=== PATIENT | female | born 1965 | race Caucasian/White ===

== ENCOUNTER 2017-01-25 16:28 | Emergency (ER) | payer BC ==
--- NOTE | 2017-01-25 18:07 | DIAGNOSTIC IMAGING REPORT ---
PROCEDURE: XR WRIST MIN 3 VIEWS - RIGHT INDICATION: TRAUMA/INJURY TECHNIQUE: Three views. COMPARISON: None. FINDINGS: There is a comminuted fracture of the right distal radial metaphysis with one fourth bone width of dorsal and radial displacement, moderate dorsal impaction, and volar apical angulation. There is a minimally impacted fracture the right distal ulnar metaphysis. IMPRESSION: 1. Comminuted and impacted/angulated fracture of the right distal radial metaphysis. 2. Minimally impacted fracture the right ulnar metaphysis.
--- NOTE | 2017-01-25 18:10 | ED ORDER SUMMARY ---
..... Patient: BRITTNEY VICENTE OrderSheet [facility] VisitID: [id number] [address] [place] [address] 51y, F Registration Date/Time: 01/25/2017 ORDER SHEET Weight: 54.4 kg (stated) Allergies: None GENERAL ORDERS: Wrist 3 or 4V Right Urgent (16:53 01/25/2017 HBivens A.R.N.P.) (Ack 16:56 AMcQuoid ER Tech1) (17:22 Vanessa) Splint (UE) (Right) (Sugar Tong) (17:33 01/25/2017 HBivens A.R.N.P.) (18:01 MARIEnehosea R.N.) Sling - arm (17:33 01/25/2017 HBivens A.R.N.P.) (18:01 Abhinav R.N.) MEDICATION ORDERS: IV FLUIDS: ORDER SHEET NOTES: [Electronically signed by Richelle Jackson.R.N.P. (22:55 01/25/2017)] [Electronically signed by Spring Dorman R.N. (11:53 01/26/2017)] [Electronically locked/signed by Spring Dorman R.N. (11:53 01/26/2017)]
--- NOTE | 2017-01-25 18:10 | ED NURSING NOTES ---
Clinical Report - Nurses [facility] [address] [place] [address] 01/25/2017 16:30 Patient: BRITTNEY VICENTE TRIAGE Triage time 16:38 Jan 25 2017. Acuity: LEVEL 4. Chief Complaint: RIGHT UPPER EXTREMITY PAIN and SWELLING. Alert. No acute distress. ANABELL COMA SCORE: [place] Coma Scale: 15- eyes open spontaneously (4); best verbal response- oriented x 4 (5); best motor response- obeys commands (6). --16:43 Spring Dorman R.N. 16:38 01/25/17. BP: 152/87. HR: 70. RR: 16. O2 saturation: 100%. Temp: 98.1 F. Pain level now: 11/17. --16:43 Spring Dorman R.N. Weight: 54.4 kg stated. Height/Length: 62 inches Per Patient. BMI: 22. --16:41 Spring Dorman R.N. Medications None. --16:39 Sprnig Dorman R.N. Allergies None. --16:39 Spring Dorman R.N. History Arrived by private vehicle. Historian: patient. Accompanied by family. Injury occurred. This occurred just prior to arrival. It is described as radiating to the right upper extremity and forearm. ( pt stats that she was knocked down by a couple of dogs and she landed on her wrist.). Treatment AMPOULE EXAMINER: Ice. PAST MEDICAL HX: Tetanus status: more than 5 years ago. Immunizations: status is unknown. SOCIAL HX: Current every day light tobacco smoker (cigarette)- less than 1/2 a pack per day. Regular alcohol use; consumes beer daily. No drug use. No infectious disease exposure. SELF HARM ASSESSMENT: A self harm assessment was performed. The patient answered "no" to the question "Do you have thoughts of harming or killing yourself?". FALL RISK ASSESSMENT: Fall risk assessment completed. No fall risk identified. NUTRITIONAL RISK ASSESSMENT: The nutritional risk assessment revealed no deficiencies. FUNCTIONAL ASSESSMENT: Functional assessment: no impairments noted. LEARNING NEEDS ASSESSMENT: The learning needs assessment revealed no barriers. ABUSE ASSESSMENT: Abuse assessment: The patient was asked "Do you feel safe in your home?". SKIN INTEGRITY ASSESSMENT: Skin integrity risk assessment completed. No skin integrity risk identified. --16:43 Spring Dorman R.N. PROBLEMS: None. --16:40 Spring Dorman R.N. ADDITIONAL SURGERIES: None. --16:40 Spring Dorman R.N. Interventions ID band on patient. To room. --16:43 Spring Dorman R.N. PHYSICAL ASSESSMENT Ambulatory to room. GENERAL / NEURO / PSYCH: Oriented X 4. Alert. Appears in no acute distress. CVS: Capillary refill is greater than 2 seconds. EXTREMITIES: Limited ROM present. Neuro-vascular status intact to the extremity. Right wrist: tenderness, swelling and deformity. SKIN: Skin is warm and dry. --16:44 Spring Dorman R.N. NURSING PROGRESS NOTES Cold pack applied. Extremity elevated. Call light placed in reach. Bed placed in lowest position. Brakes of bed on. --16:44 Spring Dorman R.N. DISPOSITION / DISCHARGE Departure time: 18:48 Jan 25 2017. Condition at departure: improved. No learning barriers present. Discharge instructions provided and reviewed with the patient. Reviewed medication(s) side effects, precautions, dosing and course information. Prescription(s) given to the patient. Reviewed referral to an orthopedic surgeon for followup. Patient verbalized understanding. Written instructions provided in Lao. The patient was discharged home and accompanied by spouse. She left the Emergency Department ambulatory and via private vehicle. Spouse driving. FALL RISK ASSESSMENT: Fall risk assessment completed. No fall risk identified. --18:49 Spring Dorman R.N. 18:48 01/25/17. BP: 127/85. HR: 85. RR: 16. O2 saturation: 99%. Pain level now: 11/17. --18:49 Spring Dorman R.N. Locked/Released at 01/26/2017 11:53 by Spring Dorman R.N.
--- NOTE | 2017-01-25 18:10 | ED ORDER SUMMARY ---
..... Patient: BRITTNEY VICENTE OrderSheet [facility] VisitID: [id number] [address] [place] [address] 51y, F Registration Date/Time: 01/25/2017 ORDER SHEET Weight: 54.4 kg (stated) Allergies: None GENERAL ORDERS: Wrist 3 or 4V Right Urgent (16:53 01/25/2017 HBivens A.R.N.P.) (Ack 16:56 AMcQuoid ER Tech1) (17:22 Vanessa) Splint (UE) (Right) (Sugar Tong) (17:33 01/25/2017 HBivens A.R.N.P.) (18:01 MARIEnehosea R.N.) Sling - arm (17:33 01/25/2017 HBivens A.R.N.P.) (18:01 Abhinav R.N.) MEDICATION ORDERS: IV FLUIDS: ORDER SHEET NOTES: [Electronically signed by Richelle Jackson.R.N.P. (22:55 01/25/2017)] [Electronically signed by Spring Dorman R.N. (11:53 01/26/2017)] [Electronically locked/signed by Spring Dorman R.N. (11:53 01/26/2017)]
--- NOTE | 2017-01-25 18:10 | ED CLINICAL REPORT ---
Clinical Report - Physicians/Mid Levels [facility] [address] [place] [address] 01/25/2017 16:30 Patient: BRITTNEY VICENTE Time Seen: 1640; initial patient contact, initial documentation, patient care assumed. Arrived- By private vehicle. Historian- patient. HISTORY OF PRESENT ILLNESS Chief Complaint: Injury to the right wrist. The injury happened just prior to arrival. Occurred at home. Fell while walking; was pushed (knocked down by her dog). Patient is experiencing mild pain. Patient denies injury to the head or neck. No other injury. REVIEW OF SYSTEMS The patient has had swelling. No tingling, numbness, weakness, foreign body or skin laceration. All systems otherwise negative, except as recorded above. PAST HISTORY Negative. The patient's dominant hand is the right. SOCIAL HISTORY Light tobacco smoker. Regular alcohol use; consumes beer daily. No drug use. No recent travel. Is a local resident. FAMILY HISTORY No significant family medical history. ADDITIONAL NOTES The nursing notes have been reviewed with agreement regarding the chief complaint, HPI, ROS, PMH and patient medications and allergies. PHYSICAL EXAM Vital Signs: 01/25/2017 16:38 BP: 152/87. HR: 70. RR: 16. O2 saturation: 100%. Temp: 98.1 F. Pain level now: 4/10. Have been reviewed as normal and appear to be correct. Appearance: Alert. Oriented X3. No acute distress. Head: Head atraumatic. Eyes: Pupils equal, round and reactive to light. Eyes normal inspection. Respiratory: No respiratory distress. Skin: Skin warm and dry. Skin intact. Extremities: Wrist injury present. Right wrist: mild tenderness and moderate swelling. Limited ROM secondary to pain (diminished flexion and extension, ulnar deviation and radial deviation). Neurovascular intact distally. (entire wrist swollen and tender). No erythema, laceration, abrasion, puncture wound or foreign body. No ecchymosis or deformity. No localization or joint effusion. No hand injury. Hand and wrist exam otherwise negative. Extremities otherwise negative. Neuro, Vascular and Tendons: Vascular status intact. Sensation intact. Motor intact. Tendon function intact. Neuro: Oriented X 3. No motor deficit. No sensory deficit. Note: isolated injury to wrist. LABS, X-RAYS, AND EKG X-Rays: Right wrist. Rt Wrist X-ray: Right wrist fracture. Minimally angulated comminuted fracture of the distal radius. (radius impacted, ulna transverse fx). No angulated, displaced or incomplete fracture of the right distal ulna. (IMPRESSION: 1. Comminuted and impacted/angulated fracture of the right distal radial metaphysis. 2. Minimally impacted fracture the right ulnar metaphysis. Electronically Final signed by:Peter Nation MD 01/25/2017 6:02:28 PM). The X-rays were interpreted by the radiologist and contemporaneously by me. PROGRESS AND PROCEDURES Splint Application: Fiberglass sugar tong splint applied to right upper extremity. Splint applied by tech. Reassessed extremity following splint application. Neurovascular intact. Follow-up recommended within 3 days. Course of Care: 1730. xrays shown to pt, discussed tx options, pt declined offer for pain pill. Patient counseled in person regarding the patient's stable condition, test results and diagnosis. Differential Diagnosis: Other possible considerations: wrist fx, dislocation, sprain. Above considerations are based on history, physical exam, reassessment and X-Ray data. Differential diagnosis was discussed with patient. Disposition: Discharged home in good and improved condition (18:10). Condition: good and stable. CLINICAL IMPRESSION Closed nondisplaced and mildly angulated comminuted fracture of the distal right radius Closed nondisplaced transverse fracture of the distal right ulna. No angulated fracture of the ulna. INSTRUCTIONS Apply ice for 20 minutes four times a day for two days until better. Don't apply ice directly to skin. Elevate affected areas above chest level for two days until better. Wear simple sling until better. Wear fiberglass splint until released. Warnings: GENERAL WARNINGS: Return or contact your physician immediately if your condition worsens or changes unexpectedly, if not improving as expected, or if other problems arise. Specifically return if problem worsens. Prescription Medications: Zofran 4 mg: Take 1 orally every six hours as needed for nausea/vomiting. Dispense ten (10). No refills. Substitution is permissible. [place] 5 mg / 325 mg tablets: take 1 to 2 orally every 6 hours as needed for pain. Dispense fifteen (15). No refills. Substitution is permissible. Motrin 800 mg tablets: take 1 tablet orally every 8 hours as needed for pain. Dispense thirty (30). No refills. Substitution is permissible. Understanding of the discharge instructions verbalized by patient. Follow-up with: [facility], , [address], , [place], [address]; Naresh Lord M.D., [facility], , [address], , [place], [address]; Adolfo Catherine M.D., [facility], , [address], , [place], [address]; Santana Becerra MD, Orthopedic Surgeon, , [address] [place] [address] [address], , [place], [address]; Ted Perkins MD, Orthopedic Surgeon, , [address] , [place], [address] Follow up in about three days even if well. Call for an appointment. Summary of care provided to patient. (Electronically signed by Richelle Jcakson A.R.N.P. 01/25/2017 22:55)
--- NOTE | 2017-01-25 18:10 | ED CLINICAL REPORT ---
Clinical Report - Physicians/Mid Levels [facility] [address] [place] [address] 01/25/2017 16:30 Patient: BRITTNEY VICENTE Time Seen: 1640; initial patient contact, initial documentation, patient care assumed. Arrived- By private vehicle. Historian- patient. HISTORY OF PRESENT ILLNESS Chief Complaint: Injury to the right wrist. The injury happened just prior to arrival. Occurred at home. Fell while walking; was pushed (knocked down by her dog). Patient is experiencing mild pain. Patient denies injury to the head or neck. No other injury. REVIEW OF SYSTEMS The patient has had swelling. No tingling, numbness, weakness, foreign body or skin laceration. All systems otherwise negative, except as recorded above. PAST HISTORY Negative. The patient's dominant hand is the right. SOCIAL HISTORY Light tobacco smoker. Regular alcohol use; consumes beer daily. No drug use. No recent travel. Is a local resident. FAMILY HISTORY No significant family medical history. ADDITIONAL NOTES The nursing notes have been reviewed with agreement regarding the chief complaint, HPI, ROS, PMH and patient medications and allergies. PHYSICAL EXAM Vital Signs: 01/25/2017 16:38 BP: 152/87. HR: 70. RR: 16. O2 saturation: 100%. Temp: 98.1 F. Pain level now: 4/10. Have been reviewed as normal and appear to be correct. Appearance: Alert. Oriented X3. No acute distress. Head: Head atraumatic. Eyes: Pupils equal, round and reactive to light. Eyes normal inspection. Respiratory: No respiratory distress. Skin: Skin warm and dry. Skin intact. Extremities: Wrist injury present. Right wrist: mild tenderness and moderate swelling. Limited ROM secondary to pain (diminished flexion and extension, ulnar deviation and radial deviation). Neurovascular intact distally. (entire wrist swollen and tender). No erythema, laceration, abrasion, puncture wound or foreign body. No ecchymosis or deformity. No localization or joint effusion. No hand injury. Hand and wrist exam otherwise negative. Extremities otherwise negative. Neuro, Vascular and Tendons: Vascular status intact. Sensation intact. Motor intact. Tendon function intact. Neuro: Oriented X 3. No motor deficit. No sensory deficit. Note: isolated injury to wrist. LABS, X-RAYS, AND EKG X-Rays: Right wrist. Rt Wrist X-ray: Right wrist fracture. Minimally angulated comminuted fracture of the distal radius. (radius impacted, ulna transverse fx). No angulated, displaced or incomplete fracture of the right distal ulna. (IMPRESSION: 1. Comminuted and impacted/angulated fracture of the right distal radial metaphysis. 2. Minimally impacted fracture the right ulnar metaphysis. Electronically Final signed by:Peter Nation MD 01/25/2017 6:02:28 PM). The X-rays were interpreted by the radiologist and contemporaneously by me. PROGRESS AND PROCEDURES Splint Application: Fiberglass sugar tong splint applied to right upper extremity. Splint applied by tech. Reassessed extremity following splint application. Neurovascular intact. Follow-up recommended within 3 days. Course of Care: 1730. xrays shown to pt, discussed tx options, pt declined offer for pain pill. Patient counseled in person regarding the patient's stable condition, test results and diagnosis. Differential Diagnosis: Other possible considerations: wrist fx, dislocation, sprain. Above considerations are based on history, physical exam, reassessment and X-Ray data. Differential diagnosis was discussed with patient. Disposition: Discharged home in good and improved condition (18:10). Condition: good and stable. CLINICAL IMPRESSION Closed nondisplaced and mildly angulated comminuted fracture of the distal right radius Closed nondisplaced transverse fracture of the distal right ulna. No angulated fracture of the ulna. INSTRUCTIONS Apply ice for 20 minutes four times a day for two days until better. Don't apply ice directly to skin. Elevate affected areas above chest level for two days until better. Wear simple sling until better. Wear fiberglass splint until released. Warnings: GENERAL WARNINGS: Return or contact your physician immediately if your condition worsens or changes unexpectedly, if not improving as expected, or if other problems arise. Specifically return if problem worsens. Prescription Medications: Zofran 4 mg: Take 1 orally every six hours as needed for nausea/vomiting. Dispense ten (10). No refills. Substitution is permissible. [place] 5 mg / 325 mg tablets: take 1 to 2 orally every 6 hours as needed for pain. Dispense fifteen (15). No refills. Substitution is permissible. Motrin 800 mg tablets: take 1 tablet orally every 8 hours as needed for pain. Dispense thirty (30). No refills. Substitution is permissible. Understanding of the discharge instructions verbalized by patient. Follow-up with: [facility], , [address], , [place], [address]; Naresh Lord M.D., [facility], , [address], , [place], [address]; Adolfo Catherine M.D., [facility], , [address], , [place], [address]; Santana Becerra MD, Orthopedic Surgeon, , [address] [place] [address] [address], , [place], [address]; Ted Perkins MD, Orthopedic Surgeon, , [address] , [place], [address] Follow up in about three days even if well. Call for an appointment. Summary of care provided to patient. (Electronically signed by Richelle Jackson A.R.N.P. 01/25/2017 22:55)
--- NOTE | 2017-01-25 18:10 | ED NURSING NOTES ---
Clinical Report - Nurses [address] [place] [address] 01/25/2017 16:30 Patient: BRITTNEY VICENTE TRIAGE Triage time 16:38 Jan 25 2017. Acuity: LEVEL 4. Chief Complaint: RIGHT UPPER EXTREMITY PAIN and SWELLING. Alert. No acute distress. ANABELL COMA SCORE: [place] Coma Scale: 15- eyes open spontaneously (4); best verbal response- oriented x 4 (5); best motor response- obeys commands (6). --16:43 Spring Dorman R.N. 16:38 01/25/17. BP: 152/87. HR: 70. RR: 16. O2 saturation: 100%. Temp: 98.1 F. Pain level now: 11/17. --16:43 Spring Dorman R.N. Weight: 54.4 kg stated. Height/Length: 62 inches Per Patient. BMI: 22. --16:41 Spring Dorman R.N. Medications None. --16:39 Spring Dorman R.N. Allergies None. --16:39 Spring Dorman R.N. History Arrived by private vehicle. Historian: patient. Accompanied by family. Injury occurred. This occurred just prior to arrival. It is described as radiating to the right upper extremity and forearm. ( pt stats that she was knocked down by a couple of dogs and she landed on her wrist.). Treatment PUBLIC HEALTH STAFF NURSE: Ice. PAST MEDICAL HX: Tetanus status: more than 5 years ago. Immunizations: status is unknown. SOCIAL HX: Current every day light tobacco smoker (cigarette)- less than 1/2 a pack per day. Regular alcohol use; consumes beer daily. No drug use. No infectious disease exposure. SELF HARM ASSESSMENT: A self harm assessment was performed. The patient answered "no" to the question "Do you have thoughts of harming or killing yourself?". FALL RISK ASSESSMENT: Fall risk assessment completed. No fall risk identified. NUTRITIONAL RISK ASSESSMENT: The nutritional risk assessment revealed no deficiencies. FUNCTIONAL ASSESSMENT: Functional assessment: no impairments noted. LEARNING NEEDS ASSESSMENT: The learning needs assessment revealed no barriers. ABUSE ASSESSMENT: Abuse assessment: The patient was asked "Do you feel safe in your home?". SKIN INTEGRITY ASSESSMENT: Skin integrity risk assessment completed. No skin integrity risk identified. --16:43 Spring Dorman R.N. PROBLEMS: None. --16:40 Spring Dorman R.N. ADDITIONAL SURGERIES: None. --16:40 Spring Dorman R.N. Interventions ID band on patient. To room. --16:43 Spring Dorman R.N. PHYSICAL ASSESSMENT Ambulatory to room. GENERAL / NEURO / PSYCH: Oriented X 4. Alert. Appears in no acute distress. CVS: Capillary refill is greater than 2 seconds. EXTREMITIES: Limited ROM present. Neuro-vascular status intact to the extremity. Right wrist: tenderness, swelling and deformity. SKIN: Skin is warm and dry. --16:44 Spring Dorman R.N. NURSING PROGRESS NOTES Cold pack applied. Extremity elevated. Call light placed in reach. Bed placed in lowest position. Brakes of bed on. --16:44 Spring Dorman R.N. DISPOSITION / DISCHARGE Departure time: 18:48 Jan 25 2017. Condition at departure: improved. No learning barriers present. Discharge instructions provided and reviewed with the patient. Reviewed medication(s) side effects, precautions, dosing and course information. Prescription(s) given to the patient. Reviewed referral to an orthopedic surgeon for followup. Patient verbalized understanding. Written instructions provided in Frisian. The patient was discharged home and accompanied by spouse. She left the Emergency Department ambulatory and via private vehicle. Spouse driving. FALL RISK ASSESSMENT: Fall risk assessment completed. No fall risk identified. --18:49 Spring Dorman R.N. 18:48 01/25/17. BP: 127/85. HR: 85. RR: 16. O2 saturation: 99%. Pain level now: 11/17. --18:49 Spring Dorman R.N. Locked/Released at 01/26/2017 11:53 by Spring Dorman R.N.
--- NOTE | 2017-01-26 11:54 | ED MED RECONCILIATION SUMMARY ---
Patient: BRITTNEY VICENTE Medication Reconciliation Report [facility] VisitID: [id number] [address] [place] [address] 51y, F Registration Date/Time: 01/25/2017 Weight: 54.4 kg Height/Length: 62 in. BMI: 22.0 ALLERGIES: None The patient's Home Medications are listed below: NONE. The source(s) of the original Home Medication information: Not obtained. The following Medications were given to the patient in the Emergency Department: None. The following Medications were prescribed to the patient: Zofran 4 mg: Take 1 orally every six hours as needed for nausea/vomiting. Dispense ten (10). No refills. Substitution is permissible. -- Richelle Jackson A.R.N.P. [place] 5 mg / 325 mg tablets: take 1 to 2 orally every 6 hours as needed for pain. Dispense fifteen (15). No refills. Substitution is permissible. -- Richelle Jackson A.R.N.P. Motrin 800 mg tablets: take 1 tablet orally every 8 hours as needed for pain. Dispense thirty (30). No refills. Substitution is permissible. -- Richelle Jackson A.R.N.P.
--- NOTE | 2017-01-26 11:54 | ED MED RECONCILIATION SUMMARY ---
Patient: BRITTNEY VICENTE Medication Reconciliation Report VisitID: [id number] [address] [address] 51y, F Registration Date/Time: 01/25/2017 Weight: 54.4 kg Height/Length: 62 in. BMI: 22.0 ALLERGIES: None The patient's Home Medications are listed below: NONE. The source(s) of the original Home Medication information: Not obtained. The following Medications were given to the patient in the Emergency Department: None. The following Medications were prescribed to the patient: Zofran 4 mg: Take 1 orally every six hours as needed for nausea/vomiting. Dispense ten (10). No refills. Substitution is permissible. -- Richelle Jackson A.R.N.P. [place] 5 mg / 325 mg tablets: take 1 to 2 orally every 6 hours as needed for pain. Dispense fifteen (15). No refills. Substitution is permissible. -- Richelle Jackson A.R.N.P. Motrin 800 mg tablets: take 1 tablet orally every 8 hours as needed for pain. Dispense thirty (30). No refills. Substitution is permissible. -- Richelle Jackson A.R.N.P.
--- NOTE | 2017-01-26 11:54 | ED DISCHARGE INSTRUCTIONS ---
Patient: BRITTNEY VICENTE General Instructions [facility] VisitID: [id number] [address], [place], [place] [id number] 51y, F Registration Date/Time: 01/25/2017 Closed nondisplaced and mildly angulated comminuted fracture of the distal right radius Closed nondisplaced transverse fracture of the distal right ulna. No angulated fracture of the ulna. INSTRUCTIONS Apply ice for 20 minutes four times a day for two days until better. Don't apply ice directly to skin. Elevate affected areas above chest level for two days until better. Wear simple sling until better. Wear fiberglass splint until released. Warnings: GENERAL WARNINGS: Return or contact your physician immediately if your condition worsens or changes unexpectedly, if not improving as expected, or if other problems arise. Specifically return if problem worsens. Prescription Medications: Zofran 4 mg: Take 1 orally every six hours as needed for nausea/vomiting. Dispense ten (10). No refills. Substitution is permissible. Greenbrier 5 mg / 325 mg tablets: take 1 to 2 orally every 6 hours as needed for pain. Dispense fifteen (15). No refills. Substitution is permissible. Motrin 800 mg tablets: take 1 tablet orally every 8 hours as needed for pain. Dispense thirty (30). No refills. Substitution is permissible. Understanding of the discharge instructions verbalized by patient. Follow-up with: [facility] [place], , [address], [facility] [address]; Naresh Lord M.D., Ortho, , [address], , [facility] [address]; Adolfo Catherine M.D., Ortho, , [address], , [place] [id number]; Santana Becerra MD, Orthopedic Surgeon, , [address], , [place], [address]; Ted Perkins MD, Orthopedic Surgeon, , [address] , [place] [id number] Follow up in about three days even if well. Call for an appointment. Summary of care provided to patient. ADDITIONAL INFORMATION Fracture: Wrist (General) You have a fracture (break) of a bone in your wrist. This may be a small crack or chip in the bone; or a major break with the broken parts pushed out of position. Wrist fractures are treated with a splint or cast. They take about 4-6 weeks to heal. Severe injuries may require surgery. Home Care: Keep your arm elevated to reduce pain and swelling. When sitting or lying down elevate your arm above the level of your heart. You can do this by placing your arm on a pillow that rests on your chest or on a pillow at your side. This is most important during the first 48 hours after injury. Apply an ice pack (ice cubes in a plastic bag, wrapped in a towel) over the injured area for 20 minutes every 1-2 hours the first day. You can place the ice pack inside the sling and directly over the splint/cast. Continue with ice packs 3-4 times a day for the next two days, then as needed for the relief of pain and swelling. Keep the cast/splint completely dry at all times. Bathe with your cast/splint out of the water, protected with a large plastic bag, rubber-banded at the top end. If a fiberglass splint/cast gets wet, you can dry it with a hair-dryer. You may use acetaminophen (Tylenol) or ibuprofen (Motrin, Advil) to control pain, unless another pain medicine was prescribed. [NOTE: If you have chronic liver or kidney disease or ever had a stomach ulcer or GI bleeding, talk with your doctor before using these medicines.] Follow Up with your doctor in one week, or as advised by our staff, to be sure the bone is healing properly. If a splint was applied, it will be changed to a cast during your follow-up visit. [NOTE: Any X-rays taken will be reviewed by a radiologist. You will be notified if there are any new findings that may affect your care.] Get Prompt Medical Attention if any of the following occur: The plaster cast or splint becomes wet or soft The fiberglass cast or splint remains wet for more than 24 hours Increased tightness or pain under the cast or splint Fingers become swollen, cold, blue, numb or tingly Fracture: Forearm (Radius/Ulna) (Reduction Needed) You have a break (fracture) of both bones in the forearm (radiusand ulna). The bones are out of place and must be set (reduced) to make them straight again. This fracture usually takes 4-6 weeks to heal. Initial treatment is with a splint or cast. Severe injuries may require surgery to repair. Home Care: Keep your arm elevated to reduce pain and swelling. When sitting or lying down elevate your arm above the level of your heart. You can do this by placing your arm on a pillow that rests on your chest or on a pillow at your side. This is most important during the first 48 hours after injury. Apply an ice pack (ice cubes in a plastic bag, wrapped in a towel) over the injured area for 20 minutes every 1-2 hours the first day. You can place the ice pack inside the sling and directly over the splint/cast. Continue with ice packs 3-4 times a day for the next two days, then as needed for the relief of pain and swelling. Keep the cast/splint completely dry at all times. Bathe with your cast/splint out of the water, protected with a large plastic bag, rubber-banded at the top end. If a fiberglass splint/cast gets wet, you can dry it with a hair-dryer. You may use acetaminophen (Tylenol) or ibuprofen (Motrin, Advil) to control pain, unless another pain medicine was prescribed. [NOTE: If you have chronic liver or kidney disease or ever had a stomach ulcer or GI bleeding, talk with your doctor before using these medicines.] Follow Up with your doctor in one week, or as advised by our staff, to be sure the bone is healing properly. If a splint was applied, it will be changed to a cast during your follow-up visit. There is a chance that the fractures will move out of place again during the first week before the ends begin to seal together. Therefore, it is important that you follow-up as directed for another X-ray. [NOTE: If x-rays were taken, they will be reviewed by a radiologist. You will be notified if there are any new findings that may affect your care.] Get Prompt Medical Attention if any of the following occur: The plaster cast or splint becomes wet or soft The fiberglass cast or splint remains wet for more than 24 hours Increased tightness or pain under the cast or splint Fingers become swollen, cold, blue, numb or tingly Sling A sling is designed to support your arm in a position of rest. It is used for injuries of the hand, forearm, upper arm, and shoulder. A shoulder that is immobilized too long can become stiff and lose range of motion. Follow up with your doctor as advised and do not use the sling longer than directed. Home Use: Leave the sling in place as long as directed by your doctor. Unless told otherwise, you may remove it when bathing, dressing, and when you go to sleep. The sling is adjustable. If it becomes loose, adjust it so that your forearm is horizontal (level with the ground). Your hand should be level with the elbow. Splint Care, Fiberglass The following will help you care for your splint: It will take up totwo hours for your fiber glass splint to fully harden; therefore, do notapply any pressure on it during that time or else it may break. To prevent swelling under the splint, for thefirst 48 hours: If the splint is on yourarm, keep it in a sling or raised to shoulder level when sitting or standing; rest it on your chest or on a pillow at your side when lying down. If the splint is on yourfoot, keep it propped up above the level of your waist when sitting or lying. Avoid crutch walking as much as possible during this time. Keep the splint/cast dry at all times. Bathe with your splint/cast well out of the water, protected with a large plastic bag, rubber-banded at the top end. If a fiberglass cast or splint gets wet, you can dry it with a hair-dryer. Follow-up care Follow up with your doctor or this facility as advised. When to seek medical care Get prompt medical attention if any of the following occur: Bad odor from the splint or wound-fluid stains the splint The splint cracks or remains wet over 24 hours Increasing tightness or pressure under the splint Fingers or toes become swollen, cold, blue, numb or tingly Increased pain under the splint Ondansetron Oral disintegrating tablet What is this medicine? ONDANSETRON (on SOHA se asim) is used to treat nausea and vomiting caused by chemotherapy. It is also used to prevent or treat nausea and vomiting after surgery. How should I use this medicine? These tablets are made to dissolve in the mouth. Do not try to push the tablet through the foil backing. With dry hands, peel away the foil backing and gently remove the tablet. Place the tablet in the mouth and allow it to dissolve, then swallow. While you may take these tablets with water, it is not necessary to do so. Talk to your distribution supervisor regarding the use of this medicine in children. Special care may be needed. What side effects may I notice from receiving this medicine? Side effects that you should report to your doctor or health landcare officer as soon as possible: allergic reactions like skin rash, itching or hives, swelling of the face, lips, or tongue breathing problems dizziness fast or irregular heartbeat feeling faint or lightheaded, falls fever and chills swelling of the hands and feet tightness in the chest Side effects that usually do not require medical attention (report to your doctor or health landcare officer if they continue or are bothersome): constipation or diarrhea headache What may interact with this medicine? Do not take this medicine with any of the following medications: -apomorphine -cisapride -dofetilide -dronedarone -pimozide -thioridazine -ziprasidone This medicine may also interact with the following medications: -carbamazepine -phenytoin -rifampicin -tramadol -other medicines that prolong the QT interval (cause an abnormal heart rhythm) What if I miss a dose? If you miss a dose, take it as soon as you can. If it is almost time for your next dose, take only that dose. Do not take double or extra doses. Where should I keep my medicine? Keep out of the reach of children. Store between 2 and 30 degrees C (36 and 86 degrees F). Throw away any unused medicine after the expiration date. What should I tell my health care provider before I take this medicine? They need to know if you have any of these conditions: heart disease history of irregular heartbeat liver disease low levels of magnesium or potassium in the blood an unusual or allergic reaction to ondansetron, granisetron, other medicines, foods, dyes, or preservatives or trying to get breast-feeding What should I watch for while using this medicine? Check with your doctor or health landcare officer as soon as you can if you have any sign of an allergic reaction. Hydrocodone Bitartrate, Acetaminophen Oral tablet What is this medicine? ACETAMINOPHEN; HYDROCODONE (a set a CHRISSY tom fen; kathryn droe KOE done) is a pain reliever. It is used to treat mild to moderate pain. How should I use this medicine? Take this medicine by mouth. Swallow it with a full glass of water. Follow the directions on the prescription label. If the medicine upsets your stomach, take the medicine with food or milk. Do not take more than you are told to take. Talk to your distribution supervisor regarding the use of this medicine in children. This medicine is not approved for use in children. What side effects may I notice from receiving this medicine? Side effects that you should report to your doctor or health landcare officer as soon as possible: allergic reactions like skin rash, itching or hives, swelling of the face, lips, or tongue breathing problems confusion feeling faint or lightheaded, falls stomach pain yellowing of the eyes or skin Side effects that usually do not require medical attention (report to your doctor or health landcare officer if they continue or are bothersome): nausea, vomiting stomach upset What may interact with this medicine? alcohol antihistamines isoniazid medicines for depression, anxiety, or psychotic disturbances medicines for sleep muscle relaxants naltrexone narcotic medicines (opiates) for pain phenobarbital ritonavir tramadol What if I miss a dose? If you miss a dose, take it as soon as you can. If it is almost time for your next dose, take only that dose. Do not take double or extra doses. Where should I keep my medicine? Keep out of the reach of children. This medicine can be abused. Keep your medicine in a safe place to protect it from theft. Do not share this medicine with anyone. Selling or giving away this medicine is dangerous and against the law. Store at room temperature between 15 and 30 degrees C (59 and 86 degrees F). Protect from light. Keep container tightly closed. Throw away any unused medicine after the expiration date. Discard unused medicine and used packaging carefully. Pets and children can be harmed if they find used or lost packages. What should I tell my health care provider before I take this medicine? They need to know if you have any of these conditions: brain tumor Crohn's disease, inflammatory bowel disease, or ulcerative colitis drink more than 3 alcohol-containing drinks per day drug abuse or addiction head injury heart or circulation problems kidney disease or problems going to the bathroom liver disease lung disease, asthma, or breathing problems an unusual or allergic reaction to acetaminophen, hydrocodone, other opioid analgesics, other medicines, foods, dyes, or preservatives or trying to get breast-feeding What should I watch for while using this medicine? Tell your doctor or health landcare officer if your pain does not go away, if it gets worse, or if you have new or a different type of pain. You may develop tolerance to the medicine. Tolerance means that you will need a higher dose of the medicine for pain relief. Tolerance is normal and is expected if you take the medicine for a long time. Do not suddenly stop taking your medicine because you may develop a severe reaction. Your body becomes used to the medicine. This does NOT mean you are addicted. Addiction is a behavior related to getting and using a drug for a non-medical reason. If you have pain, you have a medical reason to take pain medicine. Your doctor will tell you how much medicine to take. If your doctor wants you to stop the medicine, the dose will be slowly lowered over time to avoid any side effects. You may get drowsy or dizzy when you first start taking the medicine or change doses. Do not drive, use machinery, or do anything that may be dangerous until you know how the medicine affects you. Stand or sit up slowly. There are different types of narcotic medicines (opiates) for pain. If you take more than one type at the same time, you may have more side effects. Give your health care provider a list of all medicines you use. Your doctor will tell you how much medicine to take. Do not take more medicine than directed. Call emergency for help if you have problems breathing. The medicine will cause constipation. Try to have a bowel movement at least every 2 to 3 days. If you do not have a bowel movement for 3 days, call your doctor or health landcare officer. Too much acetaminophen can be very dangerous. Do not take Tylenol (acetaminophen) or medicines that contain acetaminophen with this medicine. Many non-prescription medicines contain acetaminophen. Always read the labels carefully. Ibuprofen Oral tablet What is this medicine? IBUPROFEN (eye BYOO proe fen) is a non-steroidal anti-inflammatory drug (NSAID). It is used for dental pain, fever, headaches or migraines, osteoarthritis, rheumatoid arthritis, or painful monthly periods. It can also relieve minor aches and pains caused by a cold, flu, or sore throat. How should I use this medicine? Take this medicine by mouth with a glass of water. Follow the directions on the prescription label. Take this medicine with food if your stomach gets upset. Try to not lie down for at least 10 minutes after you take the medicine. Take your medicine at regular intervals. Do not take your medicine more often than directed. A special MedGuide will be given to you by the pharmacist with each prescription and refill. Be sure to read this information carefully each time. Talk to your distribution supervisor regarding the use of this medicine in children. Special care may be needed. What side effects may I notice from receiving this medicine? Side effects that you should report to your doctor or health landcare officer as soon as possible: allergic reactions like skin rash, itching or hives, swelling of the face, lips, or tongue black or bloody stools, blood in the urine or in vomit breathing problems changes in vision chest pain general ill feeling or flu-like symptoms nausea or vomiting redness, blistering, peeling or loosening of the skin, including inside the mouth slurred speech or weakness on one side of the body stomach pain unexplained weight gain or swelling unusually weak or tired yellowing of eyes or skin Side effects that usually do not require medical attention (report to your doctor or health landcare officer if they continue or are bothersome): constipation or diarrhea dizziness gas or heartburn stomach upset What may interact with this medicine? Do not take this medicine with any of the following medications: cidofovir ketorolac methotrexate pemetrexed This medicine may also interact with the following medications: alcohol aspirin diuretics lithium other drugs for inflammation like prednisone warfarin What if I miss a dose? If you miss a dose, take it as soon as you can. If it is almost time for your next dose, take only that dose. Do not take double or extra doses. Where should I keep my medicine? Keep out of the reach of children. Store at room temperature between 15 and 30 degrees C (59 and 86 degrees F). Keep container tightly closed. Throw away any unused medicine after the expiration date. What should I tell my health care provider before I take this medicine? They need to know if you have any of these conditions: asthma cigarette smoker drink more than 3 alcohol containing drinks a day heart disease or circulation problems such as heart failure or leg edema (fluid retention) high blood pressure kidney disease liver disease stomach bleeding or ulcers an unusual or allergic reaction to ibuprofen, aspirin, other NSAIDS, other medicines, foods, dyes, or preservatives or trying to get breast-feeding What should I watch for while using this medicine? Tell your doctor or healthcare professional if your symptoms do not start to get better or if they get worse. This medicine does not prevent heart attack or stroke. In fact, this medicine may increase the chance of a heart attack or stroke. The chance may increase with longer use of this medicine and in people who have heart disease. If you take aspirin to prevent heart attack or stroke, talk with your doctor or health landcare officer. Do not take other medicines that contain aspirin, ibuprofen, or naproxen with this medicine. Side effects such as stomach upset, nausea, or ulcers may be more likely to occur. Many medicines available without a prescription should not be taken with this medicine. This medicine can cause ulcers and bleeding in the stomach and intestines at any time during treatment. Ulcers and bleeding can happen without warning symptoms and can cause . To reduce your risk, do not smoke cigarettes or drink alcohol while you are taking this medicine. You may get drowsy or dizzy. Do not drive, use machinery, or do anything that needs mental alertness until you know how this medicine affects you. Do not stand or sit up quickly, especially if you are an older patient. This reduces the risk of dizzy or fainting spells. This medicine can cause you to bleed more easily. Try to avoid damage to your teeth and gums when you brush or floss your teeth. You have been given the following additional information: Fracture, Wrist [General] Radius And Ulna Fx, Reduction Required Sling Splint Care, Fiberglass Ondansetron Oral disintegrating tablet Hydrocodone Bitartrate, Acetaminophen Oral tablet Ibuprofen Oral tablet (Electronically signed by Richelle Jackson A.R.N.P. 01/25/2017 22:55)
--- NOTE | 2017-01-26 11:54 | ED DISCHARGE INSTRUCTIONS ---
Patient: BRITTNEY VICENTE General Instructions [facility] VisitID: [id number] [address], [place], [place] [id number] 51y, F Registration Date/Time: 01/25/2017 Closed nondisplaced and mildly angulated comminuted fracture of the distal right radius Closed nondisplaced transverse fracture of the distal right ulna. No angulated fracture of the ulna. INSTRUCTIONS Apply ice for 20 minutes four times a day for two days until better. Don't apply ice directly to skin. Elevate affected areas above chest level for two days until better. Wear simple sling until better. Wear fiberglass splint until released. Warnings: GENERAL WARNINGS: Return or contact your physician immediately if your condition worsens or changes unexpectedly, if not improving as expected, or if other problems arise. Specifically return if problem worsens. Prescription Medications: Zofran 4 mg: Take 1 orally every six hours as needed for nausea/vomiting. Dispense ten (10). No refills. Substitution is permissible. [place] 5 mg / 325 mg tablets: take 1 to 2 orally every 6 hours as needed for pain. Dispense fifteen (15). No refills. Substitution is permissible. Motrin 800 mg tablets: take 1 tablet orally every 8 hours as needed for pain. Dispense thirty (30). No refills. Substitution is permissible. Understanding of the discharge instructions verbalized by patient. Follow-up with: [facility], [place], , [address], [facility] [address]; Naresh Lord M.D., Ortho, , [address], , [facility] [address]; Adolfo Catherine M.D., Ortho, , [address] , [place] [id number]; Santana Becerra MD, Orthopedic Surgeon, , [address], , [place], [address]; Ted Perkins MD, Orthopedic Surgeon, , [address] , [place] [id number] Follow up in about three days even if well. Call for an appointment. Summary of care provided to patient. ADDITIONAL INFORMATION Fracture: Wrist (General) You have a fracture (break) of a bone in your wrist. This may be a small crack or chip in the bone; or a major break with the broken parts pushed out of position. Wrist fractures are treated with a splint or cast. They take about 4-6 weeks to heal. Severe injuries may require surgery. Home Care: Keep your arm elevated to reduce pain and swelling. When sitting or lying down elevate your arm above the level of your heart. You can do this by placing your arm on a pillow that rests on your chest or on a pillow at your side. This is most important during the first 48 hours after injury. Apply an ice pack (ice cubes in a plastic bag, wrapped in a towel) over the injured area for 20 minutes every 1-2 hours the first day. You can place the ice pack inside the sling and directly over the splint/cast. Continue with ice packs 3-4 times a day for the next two days, then as needed for the relief of pain and swelling. Keep the cast/splint completely dry at all times. Bathe with your cast/splint out of the water, protected with a large plastic bag, rubber-banded at the top end. If a fiberglass splint/cast gets wet, you can dry it with a hair-dryer. You may use acetaminophen (Tylenol) or ibuprofen (Motrin, Advil) to control pain, unless another pain medicine was prescribed. [NOTE: If you have chronic liver or kidney disease or ever had a stomach ulcer or GI bleeding, talk with your doctor before using these medicines.] Follow Up with your doctor in one week, or as advised by our staff, to be sure the bone is healing properly. If a splint was applied, it will be changed to a cast during your follow-up visit. [NOTE: Any X-rays taken will be reviewed by a radiologist. You will be notified if there are any new findings that may affect your care.] Get Prompt Medical Attention if any of the following occur: The plaster cast or splint becomes wet or soft The fiberglass cast or splint remains wet for more than 24 hours Increased tightness or pain under the cast or splint Fingers become swollen, cold, blue, numb or tingly Fracture: Forearm (Radius/Ulna) (Reduction Needed) You have a break (fracture) of both bones in the forearm (radiusand ulna). The bones are out of place and must be set (reduced) to make them straight again. This fracture usually takes 4-6 weeks to heal. Initial treatment is with a splint or cast. Severe injuries may require surgery to repair. Home Care: Keep your arm elevated to reduce pain and swelling. When sitting or lying down elevate your arm above the level of your heart. You can do this by placing your arm on a pillow that rests on your chest or on a pillow at your side. This is most important during the first 48 hours after injury. Apply an ice pack (ice cubes in a plastic bag, wrapped in a towel) over the injured area for 20 minutes every 1-2 hours the first day. You can place the ice pack inside the sling and directly over the splint/cast. Continue with ice packs 3-4 times a day for the next two days, then as needed for the relief of pain and swelling. Keep the cast/splint completely dry at all times. Bathe with your cast/splint out of the water, protected with a large plastic bag, rubber-banded at the top end. If a fiberglass splint/cast gets wet, you can dry it with a hair-dryer. You may use acetaminophen (Tylenol) or ibuprofen (Motrin, Advil) to control pain, unless another pain medicine was prescribed. [NOTE: If you have chronic liver or kidney disease or ever had a stomach ulcer or GI bleeding, talk with your doctor before using these medicines.] Follow Up with your doctor in one week, or as advised by our staff, to be sure the bone is healing properly. If a splint was applied, it will be changed to a cast during your follow-up visit. There is a chance that the fractures will move out of place again during the first week before the ends begin to seal together. Therefore, it is important that you follow-up as directed for another X-ray. [NOTE: If x-rays were taken, they will be reviewed by a radiologist. You will be notified if there are any new findings that may affect your care.] Get Prompt Medical Attention if any of the following occur: The plaster cast or splint becomes wet or soft The fiberglass cast or splint remains wet for more than 24 hours Increased tightness or pain under the cast or splint Fingers become swollen, cold, blue, numb or tingly Sling A sling is designed to support your arm in a position of rest. It is used for injuries of the hand, forearm, upper arm, and shoulder. A shoulder that is immobilized too long can become stiff and lose range of motion. Follow up with your doctor as advised and do not use the sling longer than directed. Home Use: Leave the sling in place as long as directed by your doctor. Unless told otherwise, you may remove it when bathing, dressing, and when you go to sleep. The sling is adjustable. If it becomes loose, adjust it so that your forearm is horizontal (level with the ground). Your hand should be level with the elbow. Splint Care, Fiberglass The following will help you care for your splint: It will take up totwo hours for your fiber glass splint to fully harden; therefore, do notapply any pressure on it during that time or else it may break. To prevent swelling under the splint, for thefirst 48 hours: If the splint is on yourarm, keep it in a sling or raised to shoulder level when sitting or standing; rest it on your chest or on a pillow at your side when lying down. If the splint is on yourfoot, keep it propped up above the level of your waist when sitting or lying. Avoid crutch walking as much as possible during this time. Keep the splint/cast dry at all times. Bathe with your splint/cast well out of the water, protected with a large plastic bag, rubber-banded at the top end. If a fiberglass cast or splint gets wet, you can dry it with a hair-dryer. Follow-up care Follow up with your doctor or this facility as advised. When to seek medical care Get prompt medical attention if any of the following occur: Bad odor from the splint or wound-fluid stains the splint The splint cracks or remains wet over 24 hours Increasing tightness or pressure under the splint Fingers or toes become swollen, cold, blue, numb or tingly Increased pain under the splint Ondansetron Oral disintegrating tablet What is this medicine? ONDANSETRON (on SOHA se asim) is used to treat nausea and vomiting caused by chemotherapy. It is also used to prevent or treat nausea and vomiting after surgery. How should I use this medicine? These tablets are made to dissolve in the mouth. Do not try to push the tablet through the foil backing. With dry hands, peel away the foil backing and gently remove the tablet. Place the tablet in the mouth and allow it to dissolve, then swallow. While you may take these tablets with water, it is not necessary to do so. Talk to your conveyor belt operator regarding the use of this medicine in children. Special care may be needed. What side effects may I notice from receiving this medicine? Side effects that you should report to your doctor or health lpn care manager as soon as possible: allergic reactions like skin rash, itching or hives, swelling of the face, lips, or tongue breathing problems dizziness fast or irregular heartbeat feeling faint or lightheaded, falls fever and chills swelling of the hands and feet tightness in the chest Side effects that usually do not require medical attention (report to your doctor or health lpn care manager if they continue or are bothersome): constipation or diarrhea headache What may interact with this medicine? Do not take this medicine with any of the following medications: -apomorphine -cisapride -dofetilide -dronedarone -pimozide -thioridazine -ziprasidone This medicine may also interact with the following medications: -carbamazepine -phenytoin -rifampicin -tramadol -other medicines that prolong the QT interval (cause an abnormal heart rhythm) What if I miss a dose? If you miss a dose, take it as soon as you can. If it is almost time for your next dose, take only that dose. Do not take double or extra doses. Where should I keep my medicine? Keep out of the reach of children. Store between 2 and 30 degrees C (36 and 86 degrees F). Throw away any unused medicine after the expiration date. What should I tell my health care provider before I take this medicine? They need to know if you have any of these conditions: heart disease history of irregular heartbeat liver disease low levels of magnesium or potassium in the blood an unusual or allergic reaction to ondansetron, granisetron, other medicines, foods, dyes, or preservatives or trying to get breast-feeding What should I watch for while using this medicine? Check with your doctor or health lpn care manager as soon as you can if you have any sign of an allergic reaction. Hydrocodone Bitartrate, Acetaminophen Oral tablet What is this medicine? ACETAMINOPHEN; HYDROCODONE (a set a CHRISSY tom fen; kathryn droe KOE done) is a pain reliever. It is used to treat mild to moderate pain. How should I use this medicine? Take this medicine by mouth. Swallow it with a full glass of water. Follow the directions on the prescription label. If the medicine upsets your stomach, take the medicine with food or milk. Do not take more than you are told to take. Talk to your conveyor belt operator regarding the use of this medicine in children. This medicine is not approved for use in children. What side effects may I notice from receiving this medicine? Side effects that you should report to your doctor or health lpn care manager as soon as possible: allergic reactions like skin rash, itching or hives, swelling of the face, lips, or tongue breathing problems confusion feeling faint or lightheaded, falls stomach pain yellowing of the eyes or skin Side effects that usually do not require medical attention (report to your doctor or health lpn care manager if they continue or are bothersome): nausea, vomiting stomach upset What may interact with this medicine? alcohol antihistamines isoniazid medicines for depression, anxiety, or psychotic disturbances medicines for sleep muscle relaxants naltrexone narcotic medicines (opiates) for pain phenobarbital ritonavir tramadol What if I miss a dose? If you miss a dose, take it as soon as you can. If it is almost time for your next dose, take only that dose. Do not take double or extra doses. Where should I keep my medicine? Keep out of the reach of children. This medicine can be abused. Keep your medicine in a safe place to protect it from theft. Do not share this medicine with anyone. Selling or giving away this medicine is dangerous and against the law. Store at room temperature between 15 and 30 degrees C (59 and 86 degrees F). Protect from light. Keep container tightly closed. Throw away any unused medicine after the expiration date. Discard unused medicine and used packaging carefully. Pets and children can be harmed if they find used or lost packages. What should I tell my health care provider before I take this medicine? They need to know if you have any of these conditions: brain tumor Crohn's disease, inflammatory bowel disease, or ulcerative colitis drink more than 3 alcohol-containing drinks per day drug abuse or addiction head injury heart or circulation problems kidney disease or problems going to the bathroom liver disease lung disease, asthma, or breathing problems an unusual or allergic reaction to acetaminophen, hydrocodone, other opioid analgesics, other medicines, foods, dyes, or preservatives or trying to get breast-feeding What should I watch for while using this medicine? Tell your doctor or health lpn care manager if your pain does not go away, if it gets worse, or if you have new or a different type of pain. You may develop tolerance to the medicine. Tolerance means that you will need a higher dose of the medicine for pain relief. Tolerance is normal and is expected if you take the medicine for a long time. Do not suddenly stop taking your medicine because you may develop a severe reaction. Your body becomes used to the medicine. This does NOT mean you are addicted. Addiction is a behavior related to getting and using a drug for a non-medical reason. If you have pain, you have a medical reason to take pain medicine. Your doctor will tell you how much medicine to take. If your doctor wants you to stop the medicine, the dose will be slowly lowered over time to avoid any side effects. You may get drowsy or dizzy when you first start taking the medicine or change doses. Do not drive, use machinery, or do anything that may be dangerous until you know how the medicine affects you. Stand or sit up slowly. There are different types of narcotic medicines (opiates) for pain. If you take more than one type at the same time, you may have more side effects. Give your health care provider a list of all medicines you use. Your doctor will tell you how much medicine to take. Do not take more medicine than directed. Call emergency for help if you have problems breathing. The medicine will cause constipation. Try to have a bowel movement at least every 2 to 3 days. If you do not have a bowel movement for 3 days, call your doctor or health lpn care manager. Too much acetaminophen can be very dangerous. Do not take Tylenol (acetaminophen) or medicines that contain acetaminophen with this medicine. Many non-prescription medicines contain acetaminophen. Always read the labels carefully. Ibuprofen Oral tablet What is this medicine? IBUPROFEN (eye BYOO proe fen) is a non-steroidal anti-inflammatory drug (NSAID). It is used for dental pain, fever, headaches or migraines, osteoarthritis, rheumatoid arthritis, or painful monthly periods. It can also relieve minor aches and pains caused by a cold, flu, or sore throat. How should I use this medicine? Take this medicine by mouth with a glass of water. Follow the directions on the prescription label. Take this medicine with food if your stomach gets upset. Try to not lie down for at least 10 minutes after you take the medicine. Take your medicine at regular intervals. Do not take your medicine more often than directed. A special MedGuide will be given to you by the pharmacist with each prescription and refill. Be sure to read this information carefully each time. Talk to your conveyor belt operator regarding the use of this medicine in children. Special care may be needed. What side effects may I notice from receiving this medicine? Side effects that you should report to your doctor or health lpn care manager as soon as possible: allergic reactions like skin rash, itching or hives, swelling of the face, lips, or tongue black or bloody stools, blood in the urine or in vomit breathing problems changes in vision chest pain general ill feeling or flu-like symptoms nausea or vomiting redness, blistering, peeling or loosening of the skin, including inside the mouth slurred speech or weakness on one side of the body stomach pain unexplained weight gain or swelling unusually weak or tired yellowing of eyes or skin Side effects that usually do not require medical attention (report to your doctor or health lpn care manager if they continue or are bothersome): constipation or diarrhea dizziness gas or heartburn stomach upset What may interact with this medicine? Do not take this medicine with any of the following medications: cidofovir ketorolac methotrexate pemetrexed This medicine may also interact with the following medications: alcohol aspirin diuretics lithium other drugs for inflammation like prednisone warfarin What if I miss a dose? If you miss a dose, take it as soon as you can. If it is almost time for your next dose, take only that dose. Do not take double or extra doses. Where should I keep my medicine? Keep out of the reach of children. Store at room temperature between 15 and 30 degrees C (59 and 86 degrees F). Keep container tightly closed. Throw away any unused medicine after the expiration date. What should I tell my health care provider before I take this medicine? They need to know if you have any of these conditions: asthma cigarette smoker drink more than 3 alcohol containing drinks a day heart disease or circulation problems such as heart failure or leg edema (fluid retention) high blood pressure kidney disease liver disease stomach bleeding or ulcers an unusual or allergic reaction to ibuprofen, aspirin, other NSAIDS, other medicines, foods, dyes, or preservatives or trying to get breast-feeding What should I watch for while using this medicine? Tell your doctor or healthcare professional if your symptoms do not start to get better or if they get worse. This medicine does not prevent heart attack or stroke. In fact, this medicine may increase the chance of a heart attack or stroke. The chance may increase with longer use of this medicine and in people who have heart disease. If you take aspirin to prevent heart attack or stroke, talk with your doctor or health lpn care manager. Do not take other medicines that contain aspirin, ibuprofen, or naproxen with this medicine. Side effects such as stomach upset, nausea, or ulcers may be more likely to occur. Many medicines available without a prescription should not be taken with this medicine. This medicine can cause ulcers and bleeding in the stomach and intestines at any time during treatment. Ulcers and bleeding can happen without warning symptoms and can cause . To reduce your risk, do not smoke cigarettes or drink alcohol while you are taking this medicine. You may get drowsy or dizzy. Do not drive, use machinery, or do anything that needs mental alertness until you know how this medicine affects you. Do not stand or sit up quickly, especially if you are an older patient. This reduces the risk of dizzy or fainting spells. This medicine can cause you to bleed more easily. Try to avoid damage to your teeth and gums when you brush or floss your teeth. You have been given the following additional information: Fracture, Wrist [General] Radius And Ulna Fx, Reduction Required Sling Splint Care, Fiberglass Ondansetron Oral disintegrating tablet Hydrocodone Bitartrate, Acetaminophen Oral tablet Ibuprofen Oral tablet (Electronically signed by Richelle Jackson A.R.N.P. 01/25/2017 22:55)
--- NOTE | 2017-01-26 11:54 | ED MAR SUMMARY ---
..... Medication Administration Record [facility] [address], [place] [id number] Patient: BRITTNEY VICENTE Visit ID: [id number] 51y, F Weight: 54.4 kg Height/Length: 62 in BMI: 22 ALLERGIES: None
--- NOTE | 2017-01-26 11:54 | ED MAR SUMMARY ---
..... Medication Administration Record [facility] [address], [place] [id number] Patient: BRITTNEY VICENTE Visit ID: [id number] 51y, F Weight: 54.4 kg Height/Length: 62 in BMI: 22 ALLERGIES: None
[2017-01-29] MEDS ORDERED: NORCO1 TA1 PO (17:49)
[2017-01-29] MEDS ORDERED: IBUPROFEN600 MG PO (17:50)
[2017-02-02] MEDS ORDERED: NORCO1 TA1 PO (15:30)
== END 2017-01-25 18:48 | disposition home or self-care (01) ==
LOC: ED SRH 16:28
DX: S52.501A Unspecified fracture of the lower end of right radius, initial encounter for closed fracture (principal); S52.601A Unspecified fracture of lower end of right ulna, initial encounter for closed fracture; Y93.K1 Activity, walking an animal; Y99.9 Unspecified external cause status; Y92.009 Unspecified place in unspecified non-institutional (private) residence as the place of occurrence of the external cause; Z72.0 Tobacco use

== ENCOUNTER 2017-01-29 10:26 | Outpatient (CLI) | payer BC ==
--- NOTE | 2017-01-29 11:48 | DIAGNOSTIC IMAGING REPORT ---
PROCEDURE: XR CHEST 2 VIEW INDICATION: PRE OP wrist surgery TECHNIQUE: Two views COMPARISON: None. FINDINGS: The cardiomediastinal contour is normal. No central venous congestion. The lungs hyperinflated with mildly coarse interstitial markings and biapical pleural plaquing, but no focal consolidation, pleural effusion or pneumothorax. The osseous structures are intact. IMPRESSION: 1. No acute disease. 2. Findings of COPD/emphysema.
[2017-01-29] MEDS ORDERED: NORCO1 TA1 PO ×2 (17:49)
[2017-01-29] MEDS ORDERED: IBUPROFEN600 MG PO ×2 (17:50)
== END 2017-01-29 23:00 | disposition home or self-care (01) ==
LOC: RT SRH 10:26
DX: Z01.810 Encounter for preprocedural cardiovascular examination (principal); Z01.811 Encounter for preprocedural respiratory examination; Z01.812 Encounter for preprocedural laboratory examination; J44.9 Chronic obstructive pulmonary disease, unspecified
CPT/HCPCS: 90004; 90074; 90100; 95059

== ENCOUNTER 2017-02-02 10:48 | Day surgery (SDC) | payer BC ==
[~2017-02-02] VITALS: Ht 157.5 cm; Wt 48.4 kg
[~2017-02-02 10:48] MED LIST: IBUPROFEN600 MG PO; NORCO1 TA1 PO
--- NOTE | 2017-02-02 14:25 | HISTORY AND PHYSICAL ---
ADMITTED: 02/02/2017 HISTORY OF PRESENT ILLNESS: I had a chance to talk with the patient here before her surgery for her right wrist fracture. I have explained to her the nature of the injury and the comminution at the fracture site, the displacement that is present, and described to her our plan for surgery to correct the problem. I showed her where the incisions would be. I showed her how we would use a metal plate and screws to secure the fracture. With the surgery, it is expected that she will have some limitation of range of motion and some stiffness, and this is probably true whether or not she has the operation, but hopefully we could correct the deformity and align the bone much more accurately than it is now. I explained to her the risk of infection, of damage to nerve and arteries, failure of the fixation, of problems with healing or nonunion at the fracture site, of some numbness and stiffness in the fingers, and she would like to proceed. I think it is in her best interest to do so. MEDICAL/SURGICAL HISTORY: MEDICATIONS: 1. ALLERGIES: 1. SOCIAL HISTORY: FAMILY HISTORY: REVIEW OF SYSTEMS: PHYSICAL EXAMINATION: EXTREMITIES: Her physical examination at this time showed her fingers to be warm and pink. There is some ecchymosis. It is mild to moderately severe. There is some 1 + edema in the fingers. She has light touch sensation present through the ulnar, median and radial nerve distribution, with just some mild subjective numbness in the long and index finger. Her fingers are warm and pink, and the capillary refilling is less than 1 second. LAB/IMAGING: X-rays show her to have a comminuted and shortened and dorsally angulated fracture of the distal radius. PLAN: Repair as noted above.
--- NOTE | 2017-02-02 15:16 | Postoperative Progress Note ---
Postop Progress Note Preoperate Diagnosis: fRACTURE RIGHT WRIST Postoperative Diagnosis: Same Surgeon: Adolfo Catherine MD Interior Design Professional Surgeon: Viki Mccollum) Anesthesia: General ETT Findings: Fracture right wrist Procedure: ORIF right wrist Complications? No Condition: Good EBL: 50cc Blood Administered: 0 Specimen(s) removed? No Grafts or Implants? Yes Graft/Implant type: OPlate and screws right wrist . (See nursing notes for details of grafts/implants)
[2017-02-02] MEDS ORDERED: NORCO1 TA1 PO ×2 (15:30)
--- NOTE | 2017-02-02 15:31 | Provider's Discharge Care Plan ---
Problem, Goal, Plan Problem List 1. Fracture of right radius and ulna
--- NOTE | 2017-02-02 15:31 | Provider's Discharge Care Plan ---
Problem, Goal, Plan Problem List 1. Fracture of right radius and ulna
[2017-02-02 17:20] VITALS: BP 140/70
== END 2017-02-02 17:33 | disposition home or self-care (01) ==
LOC: OR SRH 10:48 → SCU SRH 10:49 → OR SRH 13:30
PROVIDERS: Orthopaedic Surgery
PROC: 0PSH04Z Reposition Right Radius with Internal Fixation Device, Open Approach (ICD-10-PCS; principal; 2017-02-02 13:30)
DX: S52.531A Colles' fracture of right radius, initial encounter for closed fracture (principal); W19.XXXA Unspecified fall, initial encounter
CPT/HCPCS: 29229; 29240; 50002; 60001; 70002; 80011; 80102; 80212; 81509; 83414; 83544; 83773; 84038; 84330; 85460; 85463; 85465; 85466; 85518; 85706; 85793